=== PATIENT | female | born 1950 | race Caucasian/White ===

== ENCOUNTER → 2016-10-09 | Outpatient (CLI) | payer MEDICARE ==
--- NOTE | 2016-10-10 13:26 | MM ---
Reason for exam: screening (asymptomatic). Last mammogram was performed 1 year ago. History: Patient is postmenopausal and had first child at age 35. Physical Findings: A clinical breast exam by your physician is recommended on an annual basis and results should be correlated with mammographic findings. MG 3D Screening Mammo W/Cad Bilateral CC and MLO view(s) were taken. Prior study comparison: October 07, 2015, bilateral MG screening mammo w CAD. October 05, 2014, bilateral MG screening mammo w CAD. The breast tissue is heterogeneously dense. This may lower the sensitivity of mammography. No significant changes when compared with prior studies. ASSESSMENT: Benign, BI-RAD 2 RECOMMENDATION: Routine screening mammogram of both breasts in 1 year.
== END | disposition home or self-care (01) ==
LOC: RADMAMWWP 06:47
PROVIDERS: ATTEND Internal Medicine
DX: Z12.31 Encounter for screening mammogram for malignant neoplasm of breast (principal)
CPT/HCPCS: 77063; G0202

== ENCOUNTER → 2017-06-25 | Outpatient (CLI) | payer MEDICARE ==
--- NOTE | 2017-06-25 08:16 | CT ---
EXAMINATION TYPE: CT sinus wo con DATE OF EXAM: 06/25/2017 COMPARISON: NONE HISTORY: Chronic sinusitis CT DLP: 540 mGycm CONTRAST: 0 mL of Omnipaque 350 The paranasal sinuses are examined in the axial plane at 2 mm thick sections. Reconstructed images i n the coronal plane were obtained. There is dental amalgam scatter artifact The maxillary sinuses are clear. The ethmoid air cells are clear. The sphenoid sinuses are clear. The frontal sinuses are clear. The septum is evaluated. There is septal deviation to the right. The ostiomeatal units are patent. There are bilateral geno bullosa. Air-fluid level is within the right geno bullosa. IMPRESSIONS: 1. Bilateral geno bullosa with an air-fluid level within the right geno bullosa. 2. Paranasal sinuses are clear.
== END | disposition home or self-care (01) ==
LOC: RADCTMAIN 07:24
PROVIDERS: ATTEND Internal Medicine
DX: J32.9 Chronic sinusitis, unspecified (principal)
CPT/HCPCS: 70486

== ENCOUNTER → 2017-10-19 | Outpatient (CLI) | payer MEDICARE ==
--- NOTE | 2017-10-22 07:56 | MM ---
Reason for exam: screening (asymptomatic). Last mammogram was performed 1 year ago. History: Patient is postmenopausal and had first child at age 35. Physical Findings: A clinical breast exam by your physician is recommended on an annual basis and results should be correlated with mammographic findings. MG Screening Mammo w CAD Bilateral CC and MLO view(s) were taken. XCCL view(s) were taken of the right breast. Prior study comparison: October 09, 2016, bilateral MG 3d screening mammo w/cad. October 07, 2015, bilateral MG screening mammo w CAD. The breast tissue is heterogeneously dense. This may lower the sensitivity of mammography. There is no discrete abnormality. ASSESSMENT: Negative, BI-RAD 1 RECOMMENDATION: Routine screening mammogram of both breasts in 1 year.
== END | disposition home or self-care (01) ==
LOC: RADMAMWWP 09:32
PROVIDERS: ATTEND Internal Medicine
DX: Z12.31 Encounter for screening mammogram for malignant neoplasm of breast (principal)
CPT/HCPCS: 77067

== ENCOUNTER 2018-01-21 10:31 | Emergency (ER) | payer MEDICARE ==
[2018-01-21 11:03] VITALS: RESP 16; TEMP 98
[2018-01-21] MEDS ORDERED: SODIUM CHLORIDE 0.9% 1,000 ML IV ONE (12:16)
[2018-01-21] MEDS ORDERED: ONDANSETRON 4 MG/2 ML VIAL IVP STA (12:16)
--- NOTE | 2018-01-21 12:20 | ED ---
Abdominal Pain HPI - General Chief Complaint: Abdominal Pain Stated Complaint: weakness, lethargy Time Seen by Provider: 01/21/18 11:51 Source: patient Mode of arrival: ambulatory Limitations: no limitations - History of Present Illness Initial Comments: Patient is a 67-year-old female presents with chief complaint lower abdominal pain. The pain started last Sunday. The patient was seen by her primary care physician and prescribed Pyridium. Patient states that initially she felt better however over the last few days she's had feelings of malaise and lower abdominal pain. Patient cannot identify inciting incident. There are no aggravating or alleviating factors. Timing is constant. Patient admits to increase appetite and nausea. She denies back pain or dysuria. - Related Data Home Medications Medication Instructions Recorded Confirmed Aspirin EC [Ecotrin] 81 mg PO DAILY 11/02/15 01/21/18 Atorvastatin [Lipitor] 80 mg PO HS 11/02/15 01/21/18 Cholecalciferol [Vitamin D3] 2,000 unit PO DAILY 11/02/15 01/21/18 Lisinopril [Zestril] 10 mg PO HS 11/02/15 01/21/18 Vits A,C,E/Lutein/Minerals 1 tab PO HS 11/02/15 01/21/18 [Ocuvite with Lutein Tablet] Calcium Citrate 250 mg PO DAILY 01/21/18 01/21/18 Fexofenadine HCl [Teetee Allergy] 180 mg PO DAILY 01/21/18 01/21/18 Fish Oil/Dha/Epa [Fish Oil 1,200 1 cap PO DAILY 01/21/18 01/21/18 mg Fish Oil] Fluticasone Nasal [place] [Flonase 1 spray EA NOSTRIL BID 01/21/18 01/21/18 Nasal [place]] Prolia(Unknown Dose) 1 dose SQ Q180D 01/21/18 01/21/18 Previous Rx's Medication Instructions Recorded Cephalexin [Keflex] 500 mg PO Q6HR 14 Days #48 cap 01/21/18 Ondansetron Odt [Zofran Odt] 4 mg PO Q8HR PRN #12 tab 01/21/18 Allergies Allergy/AdvReac Type Severity Reaction Status Date / Time No Known Allergies Allergy Verified 01/21/18 12:27 Review of Systems ROS Statement: Those systems with pertinent positive or pertinent negative responses have been documented in the HPI. ROS Other: All systems not noted in ROS Statement are negative. Constitutional: Reports: chills Gastrointestinal: Reports: abdominal pain, nausea Past Medical History Past Medical History: Hyperlipidemia, Hypertension, Myocardial Infarction ([place]) Additional Past Medical History / Comment(s): OSTEOPOROSIS. Last Myocardial Infarction Date:: 2004 History of Any Multi-Drug Resistant Organisms: None Reported Past Surgical History: Heart Catheterization With Stent Additional Past Surgical History / Comment(s): RT CATARACT, COLONOSCOPY, HEART CATH WITH 3 STENTS (2004) Past Anesthesia/Blood Transfusion Reactions: No Reported Reaction Date of Last Stent Placement:: 2004 Past Psychological History: No Psychological Hx Reported Smoking Status: Former smoker Past Alcohol Use History: None Reported Past Drug Use History: None Reported - Past Family History Mother Family Medical History: No Reported History General Exam Limitations: no limitations General appearance: alert, in no apparent distress Head exam: Present: atraumatic, normocephalic Eye exam: Present: normal appearance ENT exam: Present: normal exam, mucous membranes moist Neck exam: Present: normal inspection Respiratory exam: Present: normal lung sounds bilaterally. Absent: respiratory distress, wheezes Cardiovascular Exam: Present: regular rate, normal rhythm GI/Abdominal exam: Present: soft, tenderness (Patient has tenderness to palpation in the suprapubic region.). Absent: distended Rectal exam: Present: deferred Extremities exam: Present: normal inspection Back exam: Present: normal inspection. Absent: CVA tenderness (R), CVA tenderness (L) Neurological exam: Present: alert, oriented X3 Psychiatric exam: Present: normal affect, normal mood Skin exam: Present: warm, dry, intact Course Vital Signs 01/21/18 01/21/18 11:00 14:06 Temperature 98 F Pulse Rate 91 80 Respiratory 16 16 Rate Blood Pressure 110/70 131/61 O2 Sat by Pulse 97 99 Oximetry Medical Decision Making - Medical Decision Making Patient presents with a chief complaint of lower abdominal pain. The patient states that she was treated for urinary tract infection however her most updated medications list does not include an antibiotic. Patient was given Pyridium for 2 days. On initial evaluation, vital signs are stable, patient is in no acute distress. Patient will be evaluated with basic labs including chest x-ray, EKG, one troponin given her cardiac history. Urinalysis will be reevaluated. Patient given Zofran and IV fluids. EKG performed at 12:30 PM shows normal sinus rhythm with a rate of 80 beats per minute. EKG is otherwise unremarkable. 2:40 PM Plan evaluation of this patient shows leukocytosis over 90,000, there is left shift. Labs are otherwise unremarkable. Renal function is stable. Urinalysis shows evidence of an infection. There is hematuria present, follow-up computed tomography scan without contrast shows fat stranding around the right kidney, and while thickening of the bladder consistent with urinary tract infection pyelonephritis. Patient was given a dose of Rocephin and Zofran in the emergency department. She'll be discharged with 14 days of Keflex. She was instructed to follow up with primary care in 1-2 days, return to the emergency department if symptoms worsen or change. - Lab Data Result diagrams: 01/21/18 12:23 01/21/18 12:23 Lab Results 01/21/18 01/21/18 01/21/18 Range/Units 12:23 12:23 12:23 WBC 19.2 H (3.8-10.6) k/uL RBC 4.13 (3.80-5.40) m/uL Hgb 13.0 (11.4-16.0) gm/dL Hct 38.3 (34.0-46.0) % MCV 92.7 (80.0-100.0) fL MCH 31.5 (25.0-35.0) pg MCHC 34.0 (31.0-37.0) g/dL RDW 13.1 (11.5-15.5) % Plt Count 236 (150-450) k/uL Neutrophils % 89 % Lymphocytes % 3 % Monocytes % 6 % Eosinophils % 0 % Basophils % 0 % Neutrophils # 17.2 H (1.3-7.7) k/uL Lymphocytes # 0.6 L (1.0-4.8) k/uL Monocytes # 1.2 H (0-1.0) k/uL Eosinophils # 0.0 (0-0.7) k/uL Basophils # 0.0 (0-0.2) k/uL Sodium 136 L (137-145) mmol/L Potassium 4.3 (3.5-5.1) mmol/L Chloride 98 (98-107) mmol/L Carbon Dioxide 27 (22-30) mmol/L Anion Gap 11 mmol/L BUN 20 H (7-17) mg/dL Creatinine 0.95 (0.52-1.04) mg/dL Est GFR (CKD-EPI)AfAm 72 (>60 ml/min/1.73 sqM) Est GFR (CKD-EPI)NonAf 63 (>60 ml/min/1.73 sqM) Glucose 92 (74-99) mg/dL Calcium 9.3 (8.4-10.2) mg/dL Total Bilirubin 0.9 (0.2-1.3) mg/dL AST 23 (14-36) U/L ALT 27 (9-52) U/L Alkaline Phosphatase 74 (38-126) U/L Troponin I (0.000-0.034) ng/mL NT-Pro-B Natriuret Pep 264 pg/mL Total Protein 6.2 L (6.3-8.2) g/dL Albumin 3.6 (3.5-5.0) g/dL Amylase 37 (30-110) U/L Lipase 29 (23-300) U/L Urine Color Urine Appearance (Clear) Urine pH (5.0-8.0) Ur Specific [place] (1.001-1.035) Urine Protein (Negative) Urine Glucose (UA) (Negative) Urine Ketones (Negative) Urine Blood (Negative) Urine Nitrite (Negative) Urine Bilirubin (Negative) Urine Urobilinogen (<2.0) mg/dL Ur Leukocyte Esterase (Negative) Urine RBC (0-5) /hpf Urine WBC (0-5) /hpf Urine WBC Clumps (None) /hpf Ur Squamous Epith Cells (0-4) /hpf Urine Bacteria (None) /hpf Urine Mucus (None) /hpf 01/21/18 01/21/18 Range/Units 12:23 12:23 WBC (3.8-10.6) k/uL RBC (3.80-5.40) m/uL Hgb (11.4-16.0) gm/dL Hct (34.0-46.0) % MCV (80.0-100.0) fL MCH (25.0-35.0) pg MCHC (31.0-37.0) g/dL RDW (11.5-15.5) % Plt Count (150-450) k/uL Neutrophils % % Lymphocytes % % Monocytes % % Eosinophils % % Basophils % % Neutrophils # (1.3-7.7) k/uL Lymphocytes # (1.0-4.8) k/uL Monocytes # (0-1.0) k/uL Eosinophils # (0-0.7) k/uL Basophils # (0-0.2) k/uL Sodium (137-145) mmol/L Potassium (3.5-5.1) mmol/L Chloride (98-107) mmol/L Carbon Dioxide (22-30) mmol/L Anion Gap mmol/L BUN (7-17) mg/dL Creatinine (0.52-1.04) mg/dL Est GFR (CKD-EPI)AfAm (>60 ml/min/1.73 sqM) Est GFR (CKD-EPI)NonAf (>60 ml/min/1.73 sqM) Glucose (74-99) mg/dL Calcium (8.4-10.2) mg/dL Total Bilirubin (0.2-1.3) mg/dL AST (14-36) U/L ALT (9-52) U/L Alkaline Phosphatase (38-126) U/L Troponin I <0.012 (0.000-0.034) ng/mL NT-Pro-B Natriuret Pep pg/mL Total Protein (6.3-8.2) g/dL Albumin (3.5-5.0) g/dL Amylase (30-110) U/L Lipase (23-300) U/L Urine Color Yellow Urine Appearance Turbid H (Clear) Urine pH 5.5 (5.0-8.0) Ur Specific [place] 1.015 (1.001-1.035) Urine Protein 1+ H (Negative) Urine Glucose (UA) Negative (Negative) Urine Ketones Negative (Negative) Urine Blood Moderate H (Negative) Urine Nitrite Negative (Negative) Urine Bilirubin Negative (Negative) Urine Urobilinogen <2.0 (<2.0) mg/dL Ur Leukocyte Esterase Large H (Negative) Urine RBC 34 H (0-5) /hpf Urine WBC >182 H (0-5) /hpf Urine WBC Clumps Many H (None) /hpf Ur Squamous Epith Cells 3 (0-4) /hpf Urine Bacteria Many H (None) /hpf Urine Mucus Occasional H (None) /hpf Disposition Clinical Impression: Pyelonephritis Disposition: HOME SELF-CARE Condition: Good Prescriptions: Cephalexin [Keflex] 500 mg PO Q6HR 14 Days #48 cap Ondansetron Odt [Zofran Odt] 4 mg PO Q8HR PRN #12 tab PRN Reason: Nausea Is patient prescribed a controlled substance at d/c from ED?: No Referrals: Loc Francis MD [Primary Care Provider] - 1-2 days
--- NOTE | 2018-01-21 12:43 | XR ---
EXAMINATION TYPE: XR chest 2V DATE OF EXAM: 01/21/2018 COMPARISON: NONE INDICATION: Pain TECHNIQUE: Frontal and lateral views of the chest are obtained. FINDINGS: The heart size is normal. The pulmonary vasculature is normal. Minimal increased lung markings in the upper outer aspect left chest.. There is hyper inflation comp atible with COPD. IMPRESSION: 1. COPD. 2. No acute pulmonary process. 3. Mild increased lung markings upper outer left chest. Follow-up chest study in 3 months is recommen ded.
[2018-01-21 12:45] LABS: Basophils % (A) 0 %; Eosinophils % (A) 0 %; HCT 38.3 % (34.0-46.0); Lymphocytes # (A) 0.6 k/uL (1.0-4.8); Lymphocytes % (A) 3 %; MCH 31.5 pg (25.0-35.0); MCV 92.7 fL (80.0-100.0); Monocytes # (A) 1.2 k/uL (0-1.0); Monocytes % (A) 6 %; Neutrophils # (A) 17.2 k/uL (1.3-7.7); Neutrophils % (A) 89 %; Platelet Count 236 k/uL (150-450); RBC 4.13 m/uL (3.80-5.40); RDW 13.1 % (11.5-15.5); WBC 19.2 k/uL (3.8-10.6)
[2018-01-21 12:49] LABS: Albumin 3.6 g/dL (3.5-5.0); Calcium 9.3 mg/dL (8.4-10.2); Potassium 4.3 mmol/L (3.5-5.1); Total Bilirubin 0.9 mg/dL (0.2-1.3); Total Protein 6.2 g/dL (6.3-8.2)
[2018-01-21 13:18] LABS: Appearance,Urine Turbid (Clear); Bacteria,Urine Many /hpf; Bilirubin,Urine Negative (Negative); Blood,Urine Moderate (Negative); Color,Urine Yellow; Glucose,Urine (UA) Negative (Negative); Ketones,Urine Negative (Negative); Leukocyte Esterase,Urine Large (Negative); Mucus,Urine Occasional /hpf; Nitrite,Urine Negative (Negative); PH, Urine 5.5 (5.0-8.0); Protein,Urine 1+ (Negative); RBC,Urine 34 /hpf (0-5); Specific Gravity,Urine 1.015 (1.001-1.035); Squamous Epithelial Cell,Urine 3 /hpf (0-4); Urobilinogen,Urine <2.0 mg/dL (<2.0); WBC,Urine >182 /hpf (0-5)
[2018-01-21] MEDS ORDERED: cefTRIAXone IN SWFI 1,000 MG/10 ML SYRINGE IVP STA (13:23)
[2018-01-21 14:07] VITALS: BP 131/61; PULSE 80
--- NOTE | 2018-01-21 14:07 | CT ---
EXAMINATION TYPE: CT renal stones wo con DATE OF EXAM: 01/21/2018 COMPARISON: NONE HISTORY: 67-year-old female Generalized pain with hematuria TECHNIQUE: Contiguous axial scanning of the abdomen and pelvis without IV contrast. Coronal and sagit daphney reconstructions performed. CT DLP: 572 mGycm Automated exposure control for dose reduction was used. FINDINGS: Heart normal size without pericardial effusion. Coronary vessel calcifications are present and are a marker for coronary artery disease. Lung bases clear without pleural effusion. Calcified granuloma anterior liver. Noncontrast appearance of the liver, gallbladder, right adrenal g land, left kidney, and pancreas show no gross abnormality. Scattered calcified granulomas within the spleen. Mild diffuse thickening of the left adrenal gland w ithout discrete nodularity. There is edematous appearing right kidney with mild perinephric fat stranding and asymmetric enlargem ent 11 cm versus 9.7 cm on the left. No hydronephrosis or suspicious calcification is clearly identif ied. Moderate atherosclerotic calcifications within the abdominal aorta and iliac arteries. No dilated small bowel, free fluid, or free air. Mild to moderate colonic stool. Sigmoid diverticulosis. No pericolonic inflammatory change. Mild circumferential bladder wall thickening. Uterus is visualized. Ovaries not clearly identified du e to clustered unopacified bowel loops. Bulging convexity of the levator ani musculature suggests pelvic floor relaxation. No abnormal fluid collections pelvis or pelvic lymphadenopathy seen. Bones: Mild degenerative changes at the hips. Degenerative changes at the SI joints. Facet arthropath y and mild degenerative disc disease. IMPRESSION: 1. EDEMATOUS RIGHT KIDNEY WITH SURROUNDING PERINEPHRIC INFLAMMATION BUT WITHOUT HYDRONEPHROSIS OR LADONNA PICIOUS CALCULUS SEEN. CORRELATE FOR POSSIBLE PYELONEPHRITIS. 2. MILD CIRCUMFERENTIAL BLADDER WALL THICKENING CAN BE SEEN WITH CYSTITIS 3. SIGMOID DIVERTICULOSIS WITHOUT ACUTE DIVERTICULITIS AND PELVIC FLOOR RELAXATION.
== END 2018-01-21 15:03 | disposition home or self-care (01) ==
LOC: EC 10:31
DX: N12 Tubulo-interstitial nephritis, not specified as acute or chronic (principal); E78.5 Hyperlipidemia, unspecified; I10 Essential (primary) hypertension; I25.2 Old myocardial infarction; Z87.891 Personal history of nicotine dependence; Z79.82 Long term (current) use of aspirin; Z79.899 Other long term (current) drug therapy; Z79.51 Long term (current) use of inhaled steroids; Z95.5 Presence of coronary angioplasty implant and graft
CPT/HCPCS: 36415; 93005; 83880; 80053; 82150; 83690; 84484; 85025; 81001; 71046; 74150; 99284; 96374; 96375; 96361 ×2; J2405; J0696

== ENCOUNTER → 2019-12-30 | Outpatient (CLI) | payer MEDICARE ==
--- NOTE | 2020-01-01 08:00 | MM ---
Reason for exam: screening (asymptomatic). Last mammogram was performed 1 year and 2 months ago. History: Patient is postmenopausal and had first child at age 35. Physical Findings: A clinical breast exam by your physician is recommended on an annual basis and results should be correlated with mammographic findings. MG Screening Mammo w CAD Bilateral CC and MLO view(s) were taken. Prior study comparison: October 21, 2018, bilateral MG screening mammo w CAD. October 19, 2017, bilateral MG screening mammo w CAD. The breast tissue is heterogeneously dense. This may lower the sensitivity of mammography. There is no discrete abnormality. ASSESSMENT: Negative, BI-RAD 1 RECOMMENDATION: Routine screening mammogram of both breasts in 1 year.
== END | disposition home or self-care (01) ==
LOC: RADMAMWWP 10:17
PROVIDERS: ATTEND Internal Medicine
DX: Z12.31 Encounter for screening mammogram for malignant neoplasm of breast (principal)
CPT/HCPCS: 77067

== ENCOUNTER 2021-09-11 13:47 | Emergency (ER) | payer MEDICARE ==
[2021-09-11 14:03] VITALS: TEMP 98
[2021-09-11 14:28] LABS: Basophils % (A) 0 %; Eosinophils # (A) 0.1 k/uL (0-0.7); Eosinophils % (A) 1 %; HCT 42.7 % (34.0-46.0); HGB 14.6 gm/dL (11.4-16.0); Lymphocytes % (A) 13 %; MCH 32.2 pg (25.0-35.0); MCHC 34.3 g/dL (31.0-37.0); Mean Platelet Volume 7.5; Monocytes # (A) 0.6 k/uL (0-1.0); Monocytes % (A) 7 %; Neutrophils % (A) 77 %; Platelet Count 277 k/uL (150-450); RBC 4.54 m/uL (3.80-5.40); RDW 13.1 % (11.5-15.5); WBC 7.7 k/uL (3.8-10.6)
[2021-09-11 14:38] LABS: Prothrombin Time 10.8 sec (9.0-12.0)
[2021-09-11 14:51] LABS: ALT 22 U/L (4-34); AST 29 U/L (14-36); African American GFR (CKD) >90 (>60 ml/min/1.73 sqM); Albumin 4.7 g/dL (3.5-5.0); Alkaline Phosphatase 97 U/L (38-126); Anion Gap 9 mmol/L; Blood Urea Nitrogen 18 mg/dL (7-17); Calcium 10.6 mg/dL (8.4-10.2); Carbon Dioxide 26 mmol/L (22-30); Chloride 102 mmol/L (98-107); Glucose 98 mg/dL (74-99); Non-African American GFR(CKD) 89 (>60 ml/min/1.73 sqM); Potassium 4.1 mmol/L (3.5-5.1); Sodium 137 mmol/L (137-145); Total Bilirubin 0.9 mg/dL (0.2-1.3); Total Protein 7.5 g/dL (6.3-8.2)
[2021-09-11] MEDS ORDERED: KETOROLAC 15 MG/ML 1 ML VIAL IVP STA (15:57)
[2021-09-11] MEDS ORDERED: SODIUM CHLORIDE 0.9% 1,000 ML IV STA (15:57)
[2021-09-11 16:41] LABS: Appearance,Urine Cloudy (Clear); Bacteria,Urine Occasional /hpf; Bilirubin,Urine Negative (Negative); Blood,Urine Trace (Negative); Color,Urine Yellow; Glucose,Urine (UA) Negative (Negative); Ketones,Urine Negative (Negative); Leukocyte Esterase,Urine Moderate (Negative); Mucus,Urine Rare /hpf; Nitrite,Urine Positive (Negative); PH, Urine 5.5 (5.0-8.0); Protein,Urine Negative (Negative); RBC,Urine 2 /hpf (0-5); Specific Gravity,Urine 1.009 (1.001-1.035); Squamous Epithelial Cell,Urine <1 /hpf (0-4); Urobilinogen,Urine <2.0 mg/dL (<2.0); WBC,Urine 27 /hpf (0-5)
--- NOTE | 2021-09-11 16:48 | XR ---
EXAMINATION TYPE: XR shoulder complete RT DATE OF EXAM: 09/11/2021 COMPARISON: NONE HISTORY: Fall. Pain. TECHNIQUE: 3 views FINDINGS: There is no evidence of fracture nor dislocation. Glenohumeral joint is intact. There are n o pathologic calcifications. IMPRESSION: Negative right shoulder exam. No fracture.
--- NOTE | 2021-09-11 16:51 | XR ---
EXAMINATION TYPE: XR knee complete bilateral DATE OF EXAM: 09/11/2021 COMPARISON: NONE HISTORY: Fall. Pain. TECHNIQUE: 6 views FINDINGS: There is no evidence of fracture nor dislocation. Joint spaces are normal. There are no pat hologic calcifications. There is no sign of joint effusion. IMPRESSION: Negative bilateral knee exam.
--- NOTE | 2021-09-11 16:55 | XR ---
EXAMINATION TYPE: XR ribs LT w pa chest xray DATE OF EXAM: 09/11/2021 COMPARISON: 01/21/2018 HISTORY: Weakness TECHNIQUE: 2 views FINDINGS: There is no heart failure nor confluent pneumonic infiltrate. Costophrenic angles are clear . There are no hilar masses. Heart size is normal. There are old fractures left ninth and 10th ribs. There is evidence of acute fracture without displac ement of the anterior left ninth rib. There are multiple old lateral rib fractures at left sixth and seventh and eighth ribs. IMPRESSION: There is evidence for a single acute fracture anterior left ninth rib. Multiple old rib f ractures. No active cardiopulmonary disease.
--- NOTE | 2021-09-11 16:59 | ED ---
General Adult HPI - General Chief complaint: Dizziness Stated complaint: Fall/Dizziness Time Seen by Provider: 09/11/21 15:27 Source: patient, RN notes reviewed, old records reviewed Mode of arrival: wheelchair Limitations: no limitations - History of Present Illness Initial comments: She is a 71-year-old female who presents emergency Department complaining of dizziness and a fall yesterday. She describes the dizziness as a lightheaded feeling feeling. She states that yesterday she bent down to pick something up, felt lightheaded, and fell onto her left side. She states that she has some pain over her left ribs. She is chronic pain in the right shoulder and right knee and is uncertain if it is any worse than normal. 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 Is also complaining of left knee tenderness. Is able to ambulate. Seen at urgent care today and sent to the emergency department for further evaluation. Denies any other chest pain, shortness of breath, abdominal pain, nausea, vomiting. States she mostly feels improved at this time. Presents for further evaluation. Would like to go home if she can. - Related Data Home Medications Medication Instructions Recorded Confirmed Aspirin EC [Ecotrin] 81 mg PO HS 11/02/15 09/11/21 Atorvastatin [Lipitor] 80 mg PO HS 11/02/15 09/11/21 Lisinopril [Zestril] 10 mg PO HS 11/02/15 09/11/21 Fish Oil/Dha/Epa [Fish Oil 1,200 1 cap PO HS 01/21/18 09/11/21 mg Fish Oil] Calcium Carbonate [Calcium] 1,200 mg PO HS 09/11/21 09/11/21 Cholecalciferol [Vitamin D3 (25 50 mcg PO DAILY 09/11/21 09/11/21 Mcg = 1000 Iu)] Meloxicam 15 mg PO DAILY 09/11/21 09/11/21 Risedronate Sodium 5 mg PO HS 09/11/21 09/11/21 Previous Rx's Medication Instructions Recorded Lidocaine 5% Patch [Lidoderm 5% 1 patch TOPICAL DAILY PRN 10 Days 09/11/21 Patch] #10 patch Sulfamethox-Tmp 800-160Mg [Bactrim 1 tab PO Q12HR 7 Days #14 tab 09/11/21 DS 800-160 mg] Allergies Allergy/AdvReac Type Severity Reaction Status Date / Time No Known Allergies Allergy Verified 09/11/21 16:57 Review of Systems ROS Statement: Those systems with pertinent positive or pertinent negative responses have been documented in the HPI. ROS Other: All systems not noted in ROS Statement are negative. Past Medical History Past Medical History: Hyperlipidemia, Hypertension, Myocardial Infarction ([place]) Additional Past Medical History / Comment(s): OSTEOPOROSIS. Last Myocardial Infarction Date:: 2004 History of Any Multi-Drug Resistant Organisms: None Reported Past Surgical History: Heart Catheterization With Stent Additional Past Surgical History / Comment(s): RT CATARACT, COLONOSCOPY, HEART CATH WITH 3 STENTS (2004) Past Anesthesia/Blood Transfusion Reactions: No Reported Reaction Date of Last Stent Placement:: 2004 Past Psychological History: No Psychological Hx Reported Smoking Status: Never smoker Past Alcohol Use History: None Reported Past Drug Use History: None Reported - Past Family History Mother Family Medical History: No Reported History General Exam - General Exam Comments Initial Comments: General: Appears in no acute distress. HEAD: Normal with no signs of head trauma. EYES: PERRLA, EOMI, conjunctiva normal, no discharge. ENT: Hearing grossly intact, normal oropharynx. RESPIRATORY: Clear breath sounds bilaterally. No wheezes, rales, or rhonchi. C/V: Regular rate and rhythm. S1 and S2 auscultated, no edema, peripheral pulses 2+ and intact throughout ABD: Abd is soft, nontender, nondistended EXT: Normal range of motion of all for x-rays. Patient does have some nonspecific tender to palpation over the right shoulder, right anterior knee, left anterior knee. Chest is pinpoint tenderness to palpation over approximately the ninth rib anteriorly. SKIN: No rashes or lesions observed on exposed skin. NEURO: Alert and oriented 4. No focal sensory strength deficits. NIH is 0. GCS is 15. Limitations: no limitations Course Vital Signs 09/11/21 09/11/21 13:58 17:52 Temperature 98.0 F Pulse Rate 84 79 Respiratory 20 18 Rate Blood Pressure 163/81 118/79 O2 Sat by Pulse 96 100 Oximetry Medical Decision Making - Medical Decision Making Based on the patient's presentation and physical exam, I'm concerned for possible cardiopulmonary process her UTI for the patient considering her ligh theadedness. This occurred yesterday and she is feeling mostly better. She could be dehydrated. Also appears that she may have a rib fracture. We will obtain chest x-ray, knee x-rays, right shoulder x-ray in addition to cardiopulmonary workup. Urinalysis also be obtained. She'll be administered IV Toradol as well as 1 L fluid bolus. She was in agreement this plan. She was evaluated after she was placed in a room. Patient's EKG showed no signs of acute ischemia. Knee x-rays and shoulder x-ray revealed no acute fractures or subluxations. Rib with chest x-ray revealed a single acute fracture of the anterior left ninth rib with no displacement. Laboratory studies are remarkable for a negative troponin. Urinalysis is positive for UTI. On reevaluation, patient is feeling improved. She can ambulate without difficulty. Lightheadedness is gone. I updated her on the results of her workup. She expresses understanding that she has a left rib fracture as well as a UTI. She will be administered a dose of IV Rocephin for about expert we will send Bactrim outpatient. She was in agreement with this plan. I believe it is safe for her to be discharged home at this time. She was in agreement this plan. She'll be given a consent an incentive spirometer. I will provide the patient with a prescription for Bactrim DS twice a day for 7 days, lidocaine patch. I instructed the patient to follow up with their PCP in the next 3 days. I explained that the patient should return to the emergency department if they experience any worsening symptoms. Strict return precautions were discussed with the patient. The patient expressed understanding of these instructions. I answered all questions that the patient had. The patient was discharged home in fair condition with their prescriptions and follow up information. - Lab Data Result diagrams: 09/11/21 14:15 09/11/21 14:15 Lab Results 09/11/21 09/11/21 09/11/21 Range/Units 14:15 14:15 14:15 WBC 7.7 (3.8-10.6) k/uL RBC 4.54 (3.80-5.40) m/uL Hgb 14.6 (11.4-16.0) gm/dL Hct 42.7 (34.0-46.0) % MCV 94.0 (80.0-100.0) fL MCH 32.2 (25.0-35.0) pg MCHC 34.3 (31.0-37.0) g/dL RDW 13.1 (11.5-15.5) % Plt Count 277 (150-450) k/uL MPV 7.5 Neutrophils % 77 % Lymphocytes % 13 % Monocytes % 7 % Eosinophils % 1 % Basophils % 0 % Neutrophils # 6.0 (1.3-7.7) k/uL Lymphocytes # 1.0 (1.0-4.8) k/uL Monocytes # 0.6 (0-1.0) k/uL Eosinophils # 0.1 (0-0.7) k/uL Basophils # 0.0 (0-0.2) k/uL PT 10.8 (9.0-12.0) sec INR 1.0 (<1.2) Sodium 137 (137-145) mmol/L Potassium 4.1 (3.5-5.1) mmol/L Chloride 102 (98-107) mmol/L Carbon Dioxide 26 (22-30) mmol/L Anion Gap 9 mmol/L BUN 18 H (7-17) mg/dL Creatinine 0.67 (0.52-1.04) mg/dL Est GFR (CKD-EPI)AfAm >90 (>60 ml/min/1.73 sqM) Est GFR (CKD-EPI)NonAf 89 (>60 ml/min/1.73 sqM) Glucose 98 (74-99) mg/dL Calcium 10.6 H (8.4-10.2) mg/dL Total Bilirubin 0.9 (0.2-1.3) mg/dL AST 29 (14-36) U/L ALT 22 (4-34) U/L Alkaline Phosphatase 97 (38-126) U/L Troponin I (0.000-0.034) ng/mL Total Protein 7.5 (6.3-8.2) g/dL Albumin 4.7 (3.5-5.0) g/dL Urine Color Urine Appearance (Clear) Urine pH (5.0-8.0) Ur Specific [place] (1.001-1.035) Urine Protein (Negative) Urine Glucose (UA) (Negative) Urine Ketones (Negative) Urine Blood (Negative) Urine Nitrite (Negative) Urine Bilirubin (Negative) Urine Urobilinogen (<2.0) mg/dL Ur Leukocyte Esterase (Negative) Urine RBC (0-5) /hpf Urine WBC (0-5) /hpf Ur Squamous Epith Cells (0-4) /hpf Urine Bacteria (None) /hpf Urine Mucus (None) /hpf 09/11/21 09/11/21 Range/Units 14:15 15:30 WBC (3.8-10.6) k/uL RBC (3.80-5.40) m/uL Hgb (11.4-16.0) gm/dL Hct (34.0-46.0) % MCV (80.0-100.0) fL MCH (25.0-35.0) pg MCHC (31.0-37.0) g/dL RDW (11.5-15.5) % Plt Count (150-450) k/uL MPV Neutrophils % % Lymphocytes % % Monocytes % % Eosinophils % % Basophils % % Neutrophils # (1.3-7.7) k/uL Lymphocytes # (1.0-4.8) k/uL Monocytes # (0-1.0) k/uL Eosinophils # (0-0.7) k/uL Basophils # (0-0.2) k/uL PT (9.0-12.0) sec INR (<1.2) Sodium (137-145) mmol/L Potassium (3.5-5.1) mmol/L Chloride (98-107) mmol/L Carbon Dioxide (22-30) mmol/L Anion Gap mmol/L BUN (7-17) mg/dL Creatinine (0.52-1.04) mg/dL Est GFR (CKD-EPI)AfAm (>60 ml/min/1.73 sqM) Est GFR (CKD-EPI)NonAf (>60 ml/min/1.73 sqM) Glucose (74-99) mg/dL Calcium (8.4-10.2) mg/dL Total Bilirubin (0.2-1.3) mg/dL AST (14-36) U/L ALT (4-34) U/L Alkaline Phosphatase (38-126) U/L Troponin I <0.012 (0.000-0.034) ng/mL Total Protein (6.3-8.2) g/dL Albumin (3.5-5.0) g/dL Urine Color Yellow Urine Appearance Cloudy H (Clear) Urine pH 5.5 (5.0-8.0) Ur Specific [place] 1.009 (1.001-1.035) Urine Protein Negative (Negative) Urine Glucose (UA) Negative (Negative) Urine Ketones Negative (Negative) Urine Blood Trace H (Negative) Urine Nitrite Positive H (Negative) Urine Bilirubin Negative (Negative) Urine Urobilinogen <2.0 (<2.0) mg/dL Ur Leukocyte Esterase Moderate H (Negative) Urine RBC 2 (0-5) /hpf Urine WBC 27 H (0-5) /hpf Ur Squamous Epith Cells <1 (0-4) /hpf Urine Bacteria Occasional H (None) /hpf Urine Mucus Rare H (None) /hpf - EKG Data -: EKG Interpreted by Me EKG Comments: 12-lead Electrocardiogram Interpretation Note EKG was reviewed and interpreted by myself. 12-lead ECG performed at 1408 is interpreted by me as revealing normal sinus rhythm at a rate of 68 beats per min [place]. [place] is normal. [place] interval is 165 ms, QRS duration is 86 ms, QTc is 384 ms.. There were no ST or T wave abnormalities to suggest myocardial ischemia or injury. R wave progression across the precordium was satisfactory. By my interpretation this EKG is non-diagnostic for acute ischemia. Disposition Clinical Impression: UTI (urinary tract infection), Left rib fracture Disposition: HOME SELF-CARE Condition: Fair Instructions (If sedation given, give patient instructions): Urinary Tract Infection in Women (ED), Rib Fracture (ED) Prescriptions: Sulfamethox-Tmp 800-160Mg [Bactrim DS 800-160 mg] 1 tab PO Q12HR 7 Days #14 tab Lidocaine 5% Patch [Lidoderm 5% Patch] 1 patch TOPICAL DAILY PRN 10 Days #10 patch PRN Reason: Pain Is patient prescribed a controlled substance at d/c from ED?: No Referrals: Lizeth Galdamez MD [Primary Care Provider] - 1-2 days
[2021-09-11] MEDS ORDERED: cefTRIAXone IN SWFI 1,000 MG/10 ML SYRINGE IVP STA (17:16)
[2021-09-11 17:53] VITALS: BP 118/79; PULSE 79; RESP 18
== END 2021-09-11 17:53 | disposition home or self-care (01) ==
LOC: EC 13:47
DX: S22.32XA Fracture of one rib, left side, initial encounter for closed fracture (principal); N39.0 Urinary tract infection, site not specified; I10 Essential (primary) hypertension; W19.XXXA Unspecified fall, initial encounter
CPT/HCPCS: 36415; 93005; 80053; 84484; 85025; 85610; 81001; 87086; 71101; 73562; 73030; 99284; 96374; 96375; 96361; J0696; J1885

== ENCOUNTER 2021-12-21 11:52 | Emergency (ER) | payer MEDICARE ==
[2021-12-21 12:07] VITALS: BP 157/78; PULSE 98; RESP 18; TEMP 99.2
[2021-12-21 12:55] LABS: Appearance,Urine Cloudy (Clear); Bacteria,Urine Many /hpf; Bilirubin,Urine Negative (Negative); Blood,Urine Moderate (Negative); Color,Urine Yellow; Glucose,Urine (UA) Negative (Negative); Ketones,Urine Negative (Negative); Leukocyte Esterase,Urine Large (Negative); Mucus,Urine Many /hpf; Nitrite,Urine Negative (Negative); PH, Urine 5.5 (5.0-8.0); Protein,Urine 1+ (Negative); RBC,Urine 15 /hpf (0-5); Specific Gravity,Urine 1.016 (1.001-1.035); Squamous Epithelial Cell,Urine 1 /hpf (0-4); Urobilinogen,Urine <2.0 mg/dL (<2.0); WBC,Urine >182 /hpf (0-5)
--- NOTE | 2021-12-21 13:30 | XR ---
EXAMINATION TYPE: XR KUB DATE OF EXAM: 12/21/2021 COMPARISON: None INDICATION: Unable to urinate TECHNIQUE: Single view abdomen FINDINGS: Nonspecific small bowel gas is within the pelvis. No mass effect is evident. Psoas margins are normal. No organomegaly is present. No suspicious calcifications are identified. IMPRESSION: 1. Nonspecific bowel gas pattern
[2021-12-21] MEDS ORDERED: CEPHALEXIN 500 MG CAP PO STA (13:33)
--- NOTE | 2021-12-21 13:44 | ED ---
General Adult HPI - General Chief complaint: Abdominal Pain Stated complaint: unable to urinate, abd pain Time Seen by Provider: 12/21/21 13:25 Source: patient, RN notes reviewed, old records reviewed Mode of arrival: ambulatory Limitations: no limitations - History of Present Illness Initial comments: 71-year-old female presenting with difficulty urinating, lower abdominal pain. Patient has had some mild nausea and no vomiting. No upper abdominal pain or chest pain. No measured fever. She was seen by primary care yesterday with these complaints. No diagnosis was made at the time according to the patient. She has not had dysuria. She has had the urgency to go. Patient had a bowel movement just prior to my evaluation. - Related Data Home Medications Medication Instructions Recorded Confirmed Aspirin EC [Ecotrin] 81 mg PO HS 11/02/15 09/11/21 Atorvastatin [Lipitor] 80 mg PO HS 11/02/15 09/11/21 Lisinopril [Zestril] 10 mg PO HS 11/02/15 09/11/21 Fish Oil/Dha/Epa [Fish Oil 1,200 1 cap PO HS 01/21/18 09/11/21 mg Fish Oil] Calcium Carbonate [Calcium] 1,200 mg PO HS 09/11/21 09/11/21 Cholecalciferol [Vitamin D3 (25 50 mcg PO DAILY 09/11/21 09/11/21 Mcg = 1000 Iu)] Meloxicam 15 mg PO DAILY 09/11/21 09/11/21 Risedronate Sodium 5 mg PO HS 09/11/21 09/11/21 Previous Rx's Medication Instructions Recorded Lidocaine 5% Patch [Lidoderm 5% 1 patch TOPICAL DAILY PRN 10 Days 09/11/21 Patch] #10 patch Sulfamethox-Tmp 800-160Mg [Bactrim 1 tab PO Q12HR 7 Days #14 tab 09/11/21 DS 800-160 mg] Cephalexin [Keflex] 500 mg PO Q8HR 7 Days #21 cap 12/21/21 Allergies Allergy/AdvReac Type Severity Reaction Status Date / Time No Known Allergies Allergy Verified 12/21/21 12:07 Review of Systems ROS Statement: Those systems with pertinent positive or pertinent negative responses have been documented in the HPI. ROS Other: All systems not noted in ROS Statement are negative. Past Medical History Past Medical History: Hyperlipidemia, Hypertension, Myocardial Infarction ([place]) Additional Past Medical History / Comment(s): OSTEOPOROSIS. Last Myocardial Infarction Date:: 2004 History of Any Multi-Drug Resistant Organisms: None Reported Past Surgical History: Heart Catheterization With Stent Additional Past Surgical History / Comment(s): RT CATARACT, COLONOSCOPY, HEART CATH WITH 3 STENTS (2004) Past Anesthesia/Blood Transfusion Reactions: No Reported Reaction Date of Last Stent Placement:: 2004 Past Psychological History: No Psychological Hx Reported Smoking Status: Never smoker Past Alcohol Use History: None Reported Past Drug Use History: None Reported - Past Family History Mother Family Medical History: No Reported History General Exam Limitations: no limitations General appearance: alert, in no apparent distress Head exam: Present: atraumatic, normocephalic Eye exam: Present: normal appearance, PERRL ENT exam: Present: normal exam Neck exam: Present: normal inspection. Absent: tenderness, meningismus Respiratory exam: Present: normal lung sounds bilaterally. Absent: respiratory distress, wheezes Cardiovascular Exam: Present: regular rate, normal rhythm GI/Abdominal exam: Present: soft, tenderness (Very minor suprapubic tenderness). Absent: distended, guarding, rebound Extremities exam: Present: normal inspection, normal capillary refill. Absent: pedal edema Neurological exam: Present: alert, oriented X3, CN II-XII intact. Absent: motor sensory deficit Psychiatric exam: Present: normal affect, normal mood Skin exam: Present: warm, dry, intact. Absent: cyanosis, diaphoretic Course Vital Signs 12/21/21 12:03 Temperature 99.2 F Pulse Rate 98 Respiratory 18 Rate Blood Pressure 157/78 O2 Sat by Pulse 97 Oximetry Medical Decision Making - Medical Decision Making 71-year-old female with suprapubic pain. Patient is well-appearing with stable vitals. She is afebrile. She is not vomiting. Abdominal examination reveals very mild tenderness. She has a urinalysis was suggestive of UTI with greater than 182 white cells and many bacteria. Urine culture pending. X-ray negative for obstruction or intraperitoneal free air. At this time and feel the patient is appropriate for oral antibiotics with strict return parameters. She's given her first dose antibiotics in the emergency department and [facility]. She should follow-up with her primary care physician. - Lab Data Lab Results 12/21/21 Range/Units 12:19 Urine Color Yellow Urine Appearance Cloudy H (Clear) Urine pH 5.5 (5.0-8.0) Ur Specific [place] 1.016 (1.001-1.035) Urine Protein 1+ H (Negative) Urine Glucose (UA) Negative (Negative) Urine Ketones Negative (Negative) Urine Blood Moderate H (Negative) Urine Nitrite Negative (Negative) Urine Bilirubin Negative (Negative) Urine Urobilinogen <2.0 (<2.0) mg/dL Ur Leukocyte Esterase Large H (Negative) Urine RBC 15 H (0-5) /hpf Urine WBC >182 H (0-5) /hpf Urine WBC Clumps Many H (None) /hpf Ur Squamous Epith Cells 1 (0-4) /hpf Urine Bacteria Many H (None) /hpf Urine Mucus Many H (None) /hpf Disposition Clinical Impression: Abdominal pain, UTI (urinary tract infection) Disposition: HOME SELF-CARE Condition: Fair Instructions (If sedation given, give patient instructions): Abdominal Pain (ED), Urinary Tract Infection in Women (ED) Prescriptions: Cephalexin [Keflex] 500 mg PO Q8HR 7 Days #21 cap Is patient prescribed a controlled substance at d/c from ED?: No Referrals: Lizeth Galdamez MD [Primary Care Provider] - 1-2 days Time of Disposition: 13:42
== END 2021-12-21 13:55 | disposition home or self-care (01) ==
LOC: EC 11:52
DX: R10.30 Lower abdominal pain, unspecified (principal); N39.0 Urinary tract infection, site not specified; E78.5 Hyperlipidemia, unspecified; I10 Essential (primary) hypertension; I25.2 Old myocardial infarction
CPT/HCPCS: 74018; 81001; 87086; 99284

== ENCOUNTER → 2022-02-21 | Outpatient (CLI) | payer MEDICARE ==
--- NOTE | 2022-02-21 09:58 | US ---
EXAMINATION TYPE: US abdomen complete DATE OF EXAM: 02/21/2022 COMPARISON: NONE CLINICAL HISTORY: R10.9 ABD PAIN. abdominal pain EXAM MEASUREMENTS: Liver Length: 13.3 cm Gallbladder Wall: 0.2 cm CBD: 0.2 cm Spleen: 8.4 cm Right Kidney: 9.0 x 3.4 x 4.5 cm Left Kidney: 8.6 x 4.3 x 4.0 cm Pancreas: Obscured by bowel gas Liver: wnl Gallbladder: possible small stone = 0.3cm Evidence for sonographic Jacques's sign: no CBD: wnl Spleen: granulomas Right Kidney: no evidence of hydronephrosis Left Kidney: no evidence of hydronephrosis Upper IVC: wnl Abd Aorta: calcifications noted IMPRESSION: 1. Findings suggest a small gallstone. No wall thickening or biliary obstruction. 2. Splenic granuloma.
== END | disposition home or self-care (01) ==
LOC: RADUSWWP 09:09
PROVIDERS: ATTEND Family Medicine
DX: R10.9 Unspecified abdominal pain (principal); L92.8 Other granulomatous disorders of the skin and subcutaneous tissue
CPT/HCPCS: 76700

== ENCOUNTER 2022-03-01 08:08 | Emergency (ER) | payer MEDICARE ==
[2022-03-01] MEDS ORDERED: ONDANSETRON 4 MG/2 ML VIAL IVP STA (08:29)
[2022-03-01] MEDS ORDERED: PANTOPRAZOLE 40 MG/10 ML VIAL IVP STA (08:29)
[2022-03-01] MEDS ORDERED: MORPHINE SULFATE 4 MG/ML SYRINGE IV STA (08:29)
[2022-03-01] MEDS ORDERED: SODIUM CHLORIDE 0.9% 1,000 ML IV STA (08:29)
[2022-03-01] MEDS ORDERED: hydrALAZINE HCL 20 MG/ML 1 ML VIAL IVP STA (08:30)
[2022-03-01 08:50] VITALS: RESP 18
--- NOTE | 2022-03-01 08:52 | ED ---
General Adult HPI - General Chief complaint: Abdominal Pain Stated complaint: ABD Pain Time Seen by Provider: 03/01/22 08:14 Source: patient, RN notes reviewed, old records reviewed Mode of arrival: ambulatory Limitations: no limitations - History of Present Illness Initial comments: Patient is a 71-year-old female with past medical history remarkable for hypertension, [place], hyperlipidemia presents emergency Department complaining of abdominal pain for multiple weeks. Has been ongoing for 1-2 weeks. Discussed the pain is in her bilateral lower quadrants. It is achy, crampy. No upper abdominal pain. Denies nausea, vomiting. Denies constipation but states that stools have been softer than normal. Denies urinary complaints. States the pain comes and goes without any known palliative or provocative factors. Denies any fevers, chills. Denies any sick contacts. Denies chest pain, shortness of breath. States her stool colors are brown. Denies any hematochezia, melena. Has no other acute complaints at this time. Presents over concern for ongoing lower abdominal pain. Denies any history of abdominal surgery.Denies any hematuria, dysuria. - Related Data Home Medications Medication Instructions Recorded Confirmed Aspirin EC [Ecotrin] 81 mg PO HS 11/02/15 09/11/21 Atorvastatin [Lipitor] 80 mg PO HS 11/02/15 09/11/21 lisinopriL [Zestril] 10 mg PO HS 11/02/15 09/11/21 Fish Oil/Dha/Epa [Fish Oil 1,200 1 cap PO HS 01/21/18 09/11/21 mg Fish Oil] Calcium Carbonate [Calcium] 1,200 mg PO HS 09/11/21 09/11/21 Cholecalciferol [Vitamin D3 (25 50 mcg PO DAILY 09/11/21 09/11/21 Mcg = 1000 Iu)] Meloxicam 15 mg PO DAILY 09/11/21 09/11/21 Risedronate Sodium [Actonel] 5 mg PO HS 09/11/21 09/11/21 Previous Rx's Medication Instructions Recorded Lidocaine 5% Patch [Lidoderm 5% 1 patch TOPICAL DAILY PRN 10 Days 09/11/21 Patch] #10 patch Sulfamethox-Tmp 800-160Mg [Bactrim 1 tab PO Q12HR 7 Days #14 tab 09/11/21 DS 800-160 mg] Cephalexin [Keflex] 500 mg PO Q8HR 7 Days #21 cap 12/21/21 Dicyclomine [Bentyl] 20 mg PO QID PRN 7 Days #28 tablet 03/01/22 Ondansetron Odt [Zofran Odt] 4 mg PO Q8HR PRN 3 Days #9 tab 03/01/22 Allergies Allergy/AdvReac Type Severity Reaction Status Date / Time No Known Allergies Allergy Verified 03/01/22 08:13 Review of Systems ROS Statement: Those systems with pertinent positive or pertinent negative responses have been documented in the HPI. Review of Systems: CONST: Denies fever EYES: Denies blurry vision ENT: Denies nasal congestion C/V: Denies Chest pain RESP: Denies shortness of breath GI: Endorses abdominal pain : Denies dysuria SKIN: Denies rash. MSK: Denies joint pain. NEURO: Denies headache ROS Other: All systems not noted in ROS Statement are negative. Past Medical History Past Medical History: Hyperlipidemia, Hypertension, Myocardial Infarction ([place]) Additional Past Medical History / Comment(s): OSTEOPOROSIS. Last Myocardial Infarction Date:: 2004 History of Any Multi-Drug Resistant Organisms: None Reported Past Surgical History: Heart Catheterization With Stent Additional Past Surgical History / Comment(s): RT CATARACT, COLONOSCOPY, HEART CATH WITH 3 STENTS (2004) Past Anesthesia/Blood Transfusion Reactions: No Reported Reaction Date of Last Stent Placement:: 2004 Past Psychological History: No Psychological Hx Reported Smoking Status: Never smoker Past Alcohol Use History: None Reported Past Drug Use History: None Reported - Past Family History Mother Family Medical History: No Reported History General Exam - General Exam Comments Initial Comments: General: Appears in no acute distress. HEAD: Normal with no signs of head trauma. EYES: PERRLA, EOMI, conjunctiva normal, no discharge. ENT: Hearing grossly intact, normal oropharynx. RESPIRATORY: Clear breath sounds bilaterally. No wheezes, rales, or rhonchi. C/V: Regular rate and rhythm. S1 and S2 auscultated, no edema, peripheral pulses 2+ and intact throughout ABD: Abdomen is soft, nondistended. Mild Tender to palpation bilateral left lower and right lower quadrants. Some mild suprapubic tenderness as well. No upper abd pain at this time. no epigastric or RUQ pain. No guarding. No rebound tenderness. No peritoneal signs. EXT: Normal range of motion, no obvious deformity SKIN: No rashes or lesions observed on exposed skin. NEURO: Alert and oriented 4. No focal deficits. Limitations: no limitations Course Vital Signs 03/01/22 03/01/22 03/01/22 08:09 08:49 09:12 Temperature 98.8 F Pulse Rate 84 70 74 Respiratory 16 18 18 Rate Blood Pressure 211/95 176/101 175/87 O2 Sat by Pulse 98 98 97 Oximetry 03/01/22 11:28 Temperature 98.2 F Pulse Rate 93 Respiratory 18 Rate Blood Pressure 143/68 O2 Sat by Pulse 95 Oximetry Medical Decision Making - Medical Decision Making Based on the patient's presentation and physical exam, I'm concerned for acute intra-abdominal process for current symptoms. Did receive an ultrasound last week of the abdomen which is remarkable only for an uncomplicated single gallstone. This would not explain her lower abdominal complaints that she has been having. Did recommend we obtain a CT abdomen and pelvis in addition to abdominal laboratory studies. She was in agreement this plan. We'll check her urine as well. She'll be given a GI cocktail as well as analgesic medications. Patient was in agreement this plan.Patient is hypertensive and did not take her morning antihypertensive medications. Will be given a single dose of IV hydralazine and reevaluated. Patient's laboratory studies are remarkable for a lactic acid within normal limits. The remainder of the labs are unremarkable. They're within normal limits. CT imaging was remarkable for a cystlike area within the body of the pancreas as well as possible dilated pancreatic duct. There is diverticulosis without acute diverticulitis. I discussed the findings with the patient. She is having no upper abdominal pain, and all pain was bilateral lower quadrants which is resolved at this time. She has no laboratory studies to suggest acute pancreatic or biliary duct obstruction. I believe it is safer to be discharged home with follow-up. She was in agreement with this plan. Will be given analgesia medications for home. Strict return precautions were discussed. Patient will follow up with her PCP this week. Vital signs are now within normal limits. She is tolerating oral intake. I will provide the patient with a prescription for Bentyl, Zofran ODT. I instructed the patient to follow up with their PCP in the next 1-3 days. I provided contact information for follow up with GI. I explained that the patient should return to the emergency department if they experience any worsening symptoms. Strict return precautions were discussed with the patient. The patient expressed understanding of these instructions. I answered all questions that the patient had. The patient was discharged home in good co ndition with their prescriptions and follow up information. - Lab Data Result diagrams: 03/01/22 08:49 03/01/22 08:49 Lab Results 03/01/22 03/01/22 03/01/22 Range/Units 08:49 08:49 08:49 WBC 6.7 (3.8-10.6) k/uL RBC 4.46 (3.80-5.40) m/uL Hgb 13.7 (11.4-16.0) gm/dL Hct 42.1 (34.0-46.0) % MCV 94.6 (80.0-100.0) fL MCH 30.8 (25.0-35.0) pg MCHC 32.5 (31.0-37.0) g/dL RDW 13.6 (11.5-15.5) % Plt Count 254 (150-450) k/uL MPV 7.5 Neutrophils % 78 % Lymphocytes % 11 % Monocytes % 8 % Eosinophils % 1 % Basophils % 0 % Neutrophils # 5.3 (1.3-7.7) k/uL Lymphocytes # 0.8 L (1.0-4.8) k/uL Monocytes # 0.5 (0-1.0) k/uL Eosinophils # 0.1 (0-0.7) k/uL Basophils # 0.0 (0-0.2) k/uL Sodium 137 (137-145) mmol/L Potassium 3.8 (3.5-5.1) mmol/L Chloride 105 (98-107) mmol/L Carbon Dioxide 25 (22-30) mmol/L Anion Gap 7 mmol/L BUN 12 (7-17) mg/dL Creatinine 0.73 (0.52-1.04) mg/dL Est GFR (CKD-EPI)AfAm >90 (>60 ml/min/1.73 sqM) Est GFR (CKD-EPI)NonAf 83 (>60 ml/min/1.73 sqM) Glucose 90 (74-99) mg/dL Plasma Lactic Acid Aman 1.5 (0.7-2.0) mmol/L Calcium 9.4 (8.4-10.2) mg/dL Total Bilirubin 0.6 (0.2-1.3) mg/dL AST 28 (14-36) U/L ALT 21 (4-34) U/L Alkaline Phosphatase 74 (38-126) U/L Total Protein 6.8 (6.3-8.2) g/dL Albumin 4.3 (3.5-5.0) g/dL Amylase 57 (30-110) U/L Lipase 104 (23-300) U/L Urine Color Urine Appearance (Clear) Urine pH (5.0-8.0) Ur Specific [place] (1.001-1.035) Urine Protein (Negative) Urine Glucose (UA) (Negative) Urine Ketones (Negative) Urine Blood (Negative) Urine Nitrite (Negative) Urine Bilirubin (Negative) Urine Urobilinogen (<2.0) mg/dL Ur Leukocyte Esterase (Negative) Urine RBC (0-5) /hpf Urine WBC (0-5) /hpf Ur Squamous Epith Cells (0-4) /hpf Hyaline Casts (0-2) /lpf Urine Mucus (None) /hpf 03/01/22 Range/Units 08:49 WBC (3.8-10.6) k/uL RBC (3.80-5.40) m/uL Hgb (11.4-16.0) gm/dL Hct (34.0-46.0) % MCV (80.0-100.0) fL MCH (25.0-35.0) pg MCHC (31.0-37.0) g/dL RDW (11.5-15.5) % Plt Count (150-450) k/uL MPV Neutrophils % % Lymphocytes % % Monocytes % % Eosinophils % % Basophils % % Neutrophils # (1.3-7.7) k/uL Lymphocytes # (1.0-4.8) k/uL Monocytes # (0-1.0) k/uL Eosinophils # (0-0.7) k/uL Basophils # (0-0.2) k/uL Sodium (137-145) mmol/L Potassium (3.5-5.1) mmol/L Chloride (98-107) mmol/L Carbon Dioxide (22-30) mmol/L Anion Gap mmol/L BUN (7-17) mg/dL Creatinine (0.52-1.04) mg/dL Est GFR (CKD-EPI)AfAm (>60 ml/min/1.73 sqM) Est GFR (CKD-EPI)NonAf (>60 ml/min/1.73 sqM) Glucose (74-99) mg/dL Plasma Lactic Acid Aman (0.7-2.0) mmol/L Calcium (8.4-10.2) mg/dL Total Bilirubin (0.2-1.3) mg/dL AST (14-36) U/L ALT (4-34) U/L Alkaline Phosphatase (38-126) U/L Total Protein (6.3-8.2) g/dL Albumin (3.5-5.0) g/dL Amylase (30-110) U/L Lipase (23-300) U/L Urine Color Yellow Urine Appearance Clear (Clear) Urine pH 5.5 (5.0-8.0) Ur Specific [place] 1.010 (1.001-1.035) Urine Protein Negative (Negative) Urine Glucose (UA) Negative (Negative) Urine Ketones Negative (Negative) Urine Blood Trace H (Negative) Urine Nitrite Negative (Negative) Urine Bilirubin Negative (Negative) Urine Urobilinogen <2.0 (<2.0) mg/dL Ur Leukocyte Esterase Negative (Negative) Urine RBC 2 (0-5) /hpf Urine WBC 1 (0-5) /hpf Ur Squamous Epith Cells <1 (0-4) /hpf Hyaline Casts 1 (0-2) /lpf Urine Mucus Rare H (None) /hpf Disposition Clinical Impression: Abdominal pain of unknown cause, Pancreatic cyst Disposition: HOME SELF-CARE Condition: Good Instructions (If sedation given, give patient instructions): Abdominal Pain (ED) Additional Instructions: Follow up with PCP this week and Gi for EGD and colonoscopy. If worsening pain or symptoms please return to the Emergency department Prescriptions: Dicyclomine [Bentyl] 20 mg PO QID PRN 7 Days #28 tablet PRN Reason: Pain Ondansetron Odt [Zofran Odt] 4 mg PO Q8HR PRN 3 Days #9 tab PRN Reason: Nausea Is patient prescribed a controlled substance at d/c from ED?: No Referrals: Dmitry Mendoza MD [Primary Care Provider] - 1-2 days Roxie Carty MD [STAFF PHYSICIAN] - 1-2 days Time of Disposition: 10:32
[2022-03-01 09:16] LABS: Basophils % (A) 0 %; Eosinophils # (A) 0.1 k/uL (0-0.7); Eosinophils % (A) 1 %; HCT 42.1 % (34.0-46.0); HGB 13.7 gm/dL (11.4-16.0); Lymphocytes # (A) 0.8 k/uL (1.0-4.8); Lymphocytes % (A) 11 %; MCH 30.8 pg (25.0-35.0); MCHC 32.5 g/dL (31.0-37.0); MCV 94.6 fL (80.0-100.0); Mean Platelet Volume 7.5; Monocytes # (A) 0.5 k/uL (0-1.0); Monocytes % (A) 8 %; Neutrophils # (A) 5.3 k/uL (1.3-7.7); Neutrophils % (A) 78 %; Platelet Count 254 k/uL (150-450); RBC 4.46 m/uL (3.80-5.40); RDW 13.6 % (11.5-15.5); WBC 6.7 k/uL (3.8-10.6)
[2022-03-01 09:34] LABS: Appearance,Urine Clear (Clear); Bilirubin,Urine Negative (Negative); Blood,Urine Trace (Negative); Color,Urine Yellow; Glucose,Urine (UA) Negative (Negative); Hyaline Casts,Urine 1 /lpf (0-2); Ketones,Urine Negative (Negative); Leukocyte Esterase,Urine Negative (Negative); Mucus,Urine Rare /hpf; Nitrite,Urine Negative (Negative); PH, Urine 5.5 (5.0-8.0); Protein,Urine Negative (Negative); RBC,Urine 2 /hpf (0-5); Squamous Epithelial Cell,Urine <1 /hpf (0-4); Urobilinogen,Urine <2.0 mg/dL (<2.0); WBC,Urine 1 /hpf (0-5)
[2022-03-01 09:45] LABS: ALT 21 U/L (4-34); AST 28 U/L (14-36); African American GFR (CKD) >90 (>60 ml/min/1.73 sqM); Albumin 4.3 g/dL (3.5-5.0); Alkaline Phosphatase 74 U/L (38-126); Amylase 57 U/L (30-110); Anion Gap 7 mmol/L; Blood Urea Nitrogen 12 mg/dL (7-17); Calcium 9.4 mg/dL (8.4-10.2); Carbon Dioxide 25 mmol/L (22-30); Chloride 105 mmol/L (98-107); Glucose 90 mg/dL (74-99); Lipase 104 U/L (23-300); Non-African American GFR(CKD) 83 (>60 ml/min/1.73 sqM); Potassium 3.8 mmol/L (3.5-5.1); Sodium 137 mmol/L (137-145); Total Bilirubin 0.6 mg/dL (0.2-1.3); Total Protein 6.8 g/dL (6.3-8.2)
--- NOTE | 2022-03-01 10:21 | CT ---
EXAMINATION TYPE: CT abdomen pelvis w con DATE OF EXAM: 03/01/2022 COMPARISON: 01/21/2018, ultrasound 02/21/2022 INDICATION: Abdominal pain DLP: 419.6 mGycm, Automated exposure control for dose reduction was used. CONTRAST: 100 ml mL of Isovue 300. Study performed without Oral Contrast TECHNIQUE: Axial images were obtained from above the diaphragm to the pubic rami in the axial plane a t 5 mm thick sections. Reconstructed images are reviewed on the computer in the coronal plane. FINDINGS: Limited CT sections are obtained the lung bases. The lung bases are clear. CT ABDOMEN: Liver: Normal Spleen: Normal Pancreas: There is a 0.4 cm hypodensity within the posterior mid body of the pancreas not clearly lynne ntified previous CT but may be present on the ultrasound. Pancreatic duct appears prominent at 0.4 cm at the body of the pancreas. Normal less than 0.2 cm. Consider additional workup with ERCP. Adrenal glands: The adrenal glands are normal. Gallbladder: Normal. Patient's gallstone is not identified. Kidneys: No masses are evident. No hydronephrosis is present. No cysts are present. Delayed images were obtained through the kidneys, which remain unremarkable. Aorta: Vascular calcification is within the aorta. Inferior vena cava: Normal. CT PELVIS: Multiple diverticuli within the sigmoid colon. No inflammatory changes are adjacent to suggest acute diverticulitis. Studies without oral contrast limiting bowel evaluation. No definite free air identif ied. There is some difficulty with small bowel loops near the level of the cecum. Air within this reg ion however appears to be intraluminal Appendix: Normal as visualized. Urinary bladder: Distended. No suspicious abnormality identified. Genitourinary structures: Uterus is in the right superior hemipelvis. Adnexa appear normal Osseous structures: No suspicious lytic or sclerotic lesions. IMPRESSIONS: 1. Dilated pancreatic duct. A cystlike areas within the body of the pancreas. Consider additional wo rkup with ERCP. 2. Diverticulosis without acute diverticulitis. 3. No additional acute abnormality identified, follow-up examinations could be performed as clinicall y indicated.
[2022-03-01 11:31] VITALS: BP 143/68; PULSE 93; TEMP 98.2
== END 2022-03-01 11:43 | disposition home or self-care (01) ==
LOC: EC 08:08
DX: K86.2 Cyst of pancreas (principal); I10 Essential (primary) hypertension; E78.5 Hyperlipidemia, unspecified; Z82.49 Family history of ischemic heart disease and other diseases of the circulatory system
CPT/HCPCS: 99284; 96374; 96375; 96361; 36415; 80053; 82150; 83605; 83690; 85025; 81001; 74177; J2270; J0360; J2405; C9113; Q9967

== ENCOUNTER → 2022-03-30 | Outpatient (CLI) | payer MEDICARE ==
[2022-03-30 18:08] LABS: ALT 23 U/L (8-44); AST 24 U/L (13-35); Albumin 4.4 g/dL (3.8-4.9); Albumin/Globulin Ratio 1.91 (1.60-3.17); Alkaline Phosphatase 89 U/L (41-126); Bilirubin, Conjugated <0.20 mg/dL (0.20-0.40); Globulin 2.3 g/dL (1.6-3.3); Total Protein 6.7 g/dL (6.2-8.2)
== END | disposition home or self-care (01) ==
LOC: LABWHC1 11:01
PROVIDERS: ATTEND Internal Medicine Gastroenterology
DX: R93.2 Abnormal findings on diagnostic imaging of liver and biliary tract (principal)
CPT/HCPCS: 36415; 80076

== ENCOUNTER 2022-04-12 08:39 | Day surgery (SDC) | payer MEDICARE ==
[~2022-04-12 08:39] MED LIST: LACTATED RINGERS 1,000 ML IV SCH; LIDOCAINE 1% (10MG/ML) FOR IV START INTRADERMA PRN
[2022-04-12 09:51] VITALS: TEMP 97.3
[2022-04-12] MEDS ORDERED: PHENYLEPHRINE-0.9% NACL SYG 1,000 MCG/10 ML SYRINGE ONE (10:22)
[2022-04-12] MEDS ORDERED: PROPOFOL 10 MG/ML 20 ML VIAL IV ONE (10:22)
--- NOTE | 2022-04-12 10:39 | P.PCN ---
Date of Procedure: 04/12/22 Procedure(s) Performed: BRIEF HISTORY: Patient is a 71-year-old [place] female scheduled for an elective colonoscopy as a part of evaluation of change in bowel habits and prior history of colon polyps PROCEDURE PERFORMED: Colonoscopy with snare polypectomy. PREOPERATIVE DIAGNOSIS: Change in bowel habits and prior history of colon polyps. IV sedation per Anesthesia. PROCEDURE: After informed consent was obtained, the patient, was brought into the endoscopy unit. IV sedation was administered by Anesthesia under continuous monitoring. Digital rectal examination was normal. Initially the Olympus CF-160 flexible video colonoscope was then inserted in the rectum, gradually advanced into the cecum without any difficulty. Careful examination was performed as the scope was gradually being withdrawn. Ileocecal valve and the appendiceal orifice were visualized and appeared normal. Prep was excellent. Mucosa of the cecum had a 6 minute a flat polyp that was removed by snare polypectomy. Rest of the, ascending colon, transverse colon, appeared normal. The descending colon there was a 4 mm sessile polyp removed by snare polypectomy. Extensive left sided diverticulosis seen. Mucosa of the descending colon, sigmoid colon, and rectum appeared normal. Retroflexion was performed in the rectum and no lesions were seen. The patient tolerated the procedure well. IMPRESSION: 6 mm flat cecal polyp status post polypectomy 4 mm descending colon polyp status post polypectomy Moderate sigmoid diverticulosis RECOMMENDATIONS: Findings of this examination were discussed with the patient as well as his family. She was advised to follow with the biopsy results. If the biopsies adenoma she can have a repeat colonoscopy in 5 years..
[2022-04-12 11:27] VITALS: BP 109/67; PULSE 78; RESP 18
== END 2022-04-12 11:39 ==
LOC: ORWHC2ENDO 08:39
PROVIDERS: ATTEND Internal Medicine Gastroenterology
DX: D12.0 Benign neoplasm of cecum (principal); K57.30 Diverticulosis of large intestine without perforation or abscess without bleeding; I10 Essential (primary) hypertension; E78.5 Hyperlipidemia, unspecified; Z88.6 Allergy status to analgesic agent; Z79.899 Other long term (current) drug therapy; Z79.890 Hormone replacement therapy
CPT/HCPCS: 45385; 88305; J2370; J2704

== ENCOUNTER → 2022-04-13 | Outpatient (CLI) | payer MEDICARE ==
--- NOTE | 2022-04-13 10:42 | MR ---
MR MRCP INDICATION: Patient age:Female; 71 years old; Reason for study: R93.2 ABNORMAL FINDINGS ON DX IMAGING OF LIVER; [facility]. COMPARISON: CT abdomen and pelvis 03/01/2022. TECHNIQUE: Multi planar, T2-weighted imaging with and without fat saturation and chemical shift imag ing was performed of the abdomen. Then, heavily T2 weighted imaging (half-Fourier acquisition single- shot turbo spin-echo) was utilized in order to study the biliary system. Maximum intensity projectio n images were reconstructed from the original data of the biliary tree. No Gadolinium given. FINDINGS: Motion degraded examination. MRCP: The intrahepatic ducts are mildly prominent. The common bile duct at the level of the pancrea tic head measures 6 mm in size. The common hepatic duct measures 5 mm in size. Focal stenosis versus artifact involving the proximal common hepatic duct measuring up to 4 mm (series 902, image 7). The pancreatic duct is normal in caliber. Pancreatic divisum identified. There is a 5 mm T2 hyperintense cystic lesion with connection with the main pancreatic duct in the midportion of the pancreatic body (series 1001, image 5). No mural nodularity identified. No filling defects demonstrated within the gallbladder to suggest gallstones. No wall thickening or s urrounding edema. Gallbladder adenomyomatosis identified. Abdomen: The liver, spleen, adrenal glands, kidneys, and pancreas have a normal noncontrast appearanc e. IMPRESSION: 1. Mid pancreatic body 5 mm cystic lesion favored to represent a sidebranch IPMN. No worrisome featur es or high risk stigmata. 2. Focal stenosis versus artifact involving the proximal common hepatic duct measuring 4 mm. Consider further evaluation with ERCP or follow-up MRCP. 3. Pancreatic divisum. 4. Gallbladder adenomyomatosis.
== END | disposition home or self-care (01) ==
LOC: RADMRIMAIN 07:53
PROVIDERS: ATTEND Internal Medicine Gastroenterology
DX: R93.2 Abnormal findings on diagnostic imaging of liver and biliary tract (principal)
CPT/HCPCS: 74181

== ENCOUNTER → 2022-08-29 | Outpatient (CLI) | payer MEDICARE ==
--- NOTE | 2022-08-30 15:10 | US ---
EXAMINATION TYPE: US arterial LE multi level DATE OF EXAM: 08/29/2022 12:14 PM CLINICAL HISTORY: M79.604 PAIN IN RIGHT LEG, M79.605 PAIN IN L LEG. History of: Smoker: Previous Hypertension: Yes Diabetic: No Hyperlipidemia: Yes TIA/CVA: Yes Previous Vascular Surgery: Yes CAD: Yes [place]: Yes Vascular Ulcers: No Claudication: No Gangrene: No Doppler Waveforms: Right: Biphasic Left: Biphasic Pulse Volume Recording: Pressure Gradients: Right Brachial Pressure: Left Brachial Pressure: Ankle-Brachial Indices: Right: 1.03 Left: 1.07 Toe Brachial Indices: Right: 0.57 Left: 0.88 IMPRESSION: Slightly diminished right sided TBI value consistent with at least mild peripheral arter ial disease in the right foot. Further workup and follow-up advised.
== END | disposition home or self-care (01) ==
LOC: RADUSWWP 12:05
PROVIDERS: ATTEND Family Medicine
DX: I10 Essential (primary) hypertension (principal); E78.5 Hyperlipidemia, unspecified; I25.10 Atherosclerotic heart disease of native coronary artery without angina pectoris; Z87.891 Personal history of nicotine dependence; Z86.73 Personal history of transient ischemic attack (TIA), and cerebral infarction without residual deficits
CPT/HCPCS: 93923

== ENCOUNTER → 2022-10-11 | Outpatient (CLI) | payer MEDICARE ==
--- NOTE | 2022-10-11 13:16 | MR ---
EXAMINATION TYPE: MR abdomen wo/w con DATE OF EXAM: 10/11/2022 8:48 AM INDICATION: Patient age:Female; 72 years old; Reason for study: R93.2 ABNORMAL FINDINGS ON DX IMAGING OF LIVER. Abnormal CT abdomen/pelvis COMPARISON: MRCP 04/13/2022. TECHNIQUE: Multiplanar multi-sequence imaging was performed without contrast. Post contrast imaging was performed. Post IV contrast subtraction images were also submitted for review. IV Contrast: 4.5 cc Gadavist FINDINGS: LOWER CHEST: No gross irregularity. ABDOMEN Liver: Mild signal dropout on in phase imaging. No suspicious masses. No abnormal postcontrast enhanc ement Gallbladder and Bile ducts: The intrahepatic ducts are mildly prominent. The common bile duct at the level of the pancreatic head measures 6 mm in size. The common hepatic duct measures 5 mm in size. Focal stenosis involving the proximal common hepatic duct measuring up to 4 mm with post stenotic dil ation up to 8 mm. No abnormal postcontrast enhancement. Gallbladder adenomyomatosis identified. Pancreas: The pancreatic duct is normal in caliber. Pancreatic divisum identified. There is a 5 mm T2 hyperintense cystic lesion with connection with the main pancreatic duct in the midportion of the pa ncreatic body series 401 image 9. No mural nodularity identified. Spleen: Unremarkable. Adrenal glands: Unremarkable. Kidneys: Unremarkable. Stomach and Bowel: Scattered colonic diverticula present. No evidence of bowel obstruction. Peritoneum: No evidence of pneumoperitoneum or free fluid. Vasculature: Unremarkable. No aortic aneurysm. Musculoskeletal: The osseous structures appear intact. Lymph Nodes: No gross evidence for lymphadenopathy. Abdominal wall: Unremarkable. IMPRESSION: Motion limited exam again. 1. No suspicious masses. 2. Stable mid pancreatic body 5 mm cystic lesion favored to represent a sidebranch IPMN. No worrisom e features or high risk stigmata. 3. Focal narrowing of the common hepatic duct remains present without definitive postcontrast enhanc ement to suggest mass. 4. Pancreatic divisum. 5. Gallbladder adenomyomatosis.
== END | disposition home or self-care (01) ==
LOC: RADMRIMAIN 07:34
PROVIDERS: ATTEND Internal Medicine Gastroenterology
DX: K86.89 Other specified diseases of pancreas (principal); K76.89 Other specified diseases of liver; Q45.3 Other congenital malformations of pancreas and pancreatic duct; K82.8 Other specified diseases of gallbladder
CPT/HCPCS: 74183; A9585

== ENCOUNTER → 2023-05-23 | Outpatient (CLI) | payer MEDICARE ==
--- NOTE | 2023-05-24 10:06 | MM ---
Reason for Exam: Screening (asymptomatic). Last mammogram was performed 3 year(s) and 4 month(s) ago. Patient History: Menarche at age 12. First Full-Term at age 35. Late child-bearing (after 30). Postmenopausal. Risk Values: Tequila 5 year model risk: 2.4%. NCI Lifetime model risk: 5.9%. Prior Study Comparison: 10/19/2017 Bilateral Screening Mammogram, [facility]. 10/21/2018 Bilateral Screening Mammogram, [facility]. 12/30/2019 Bilateral Screening Mammogram, [facility]. Tissue Density: The breast tissue is heterogeneously dense. This may lower the sensitivity of mammography. Findings: Analyzed By CAD. There is no suspicious group of microcalcifications or new suspicious mass in either breast. Overall Assessment: Negative, BI-RAD 1 Management: Screening Mammogram of both breasts in 1 year. A clinical breast exam by your physician is recommended on an annual basis and results should be correlated with mammographic findings. Note on Tequila scores and lifetime risk: 1. A Tequila score greater than 3% is considered moderate risk. If this is the case, consider specialist referral to assess eligibility for a risk reducing agent. If overall lifetime risk for the development of breast cancer is 20% or higher, the patient may qualify for future screening with alternating mammogram and breast MRI. Electronically signed and approved by: Henrique Lomax D.O.
== END | disposition home or self-care (01) ==
LOC: RADMAMWWP 14:09
PROVIDERS: ATTEND Family Medicine
DX: Z12.31 Encounter for screening mammogram for malignant neoplasm of breast (principal); Z78.0 Asymptomatic menopausal state
CPT/HCPCS: 77063; 77067

== ENCOUNTER → 2024-01-11 | Outpatient (CLI) | payer MEDICARE ==
[2024-01-11 14:23] VITALS: BP 143/75; PULSE 90; RESP 15; TEMP 97.5
[2024-01-11] MEDS: DENOSUMAB 60 MG/ML 1 ML SYRINGE SQ NR (14:23)
== END ==
LOC: PROCWHC3 14:13
PROVIDERS: ATTEND Nurse Practitioner Family
DX: M81.0 Age-related osteoporosis without current pathological fracture (principal)
CPT/HCPCS: 96372; J0897

== ENCOUNTER → 2024-05-16 | Outpatient (CLI) | payer MEDICARE ==
[2024-05-16 15:30] LABS: Basophils # (A) 0.03 X 10*3/uL (0.00-0.10); Basophils % (A) 0.5 %; Eosinophils # (A) 0.11 X 10*3/uL (0.04-0.35); Eosinophils % (A) 1.7 %; HGB 14.1 g/dL (12.0-15.0); Lymphocytes # (A) 1.75 X 10*3/uL (0.90-5.00); Lymphocytes % (A) 26.4 %; MCH 30.5 pg (27.0-32.0); MCHC 32.8 g/dL (32.0-37.0); MCV 93.1 FL (80.0-97.0); Mean Platelet Volume 9.8 FL (9.5-12.2); Monocytes % (A) 13.6 %; NRBC Per 100 WBC 0 X 10*3/uL (0.00-0.01); Neutrophils # (A) 3.81 X 10*3/uL (1.80-7.70); Neutrophils % (A) 57.5 %; Platelet Count 308 X 10*3/uL (140-440); RBC 4.62 X 10*6/uL (4.10-5.20); RDW 13.3 % (11.5-14.5); WBC 6.62 X 10*3/uL (4.50-10.00)
[2024-05-16 15:50] LABS: ALT 21 U/L (8-44); AST 23 U/L (13-35); Albumin 4.7 g/dL (3.8-4.9); Albumin/Globulin Ratio 1.96 Ratio (1.60-3.17); Alkaline Phosphatase 56 U/L (41-126); Amylase 59 U/L (23-121); BUN/Creat Ratio 21.71 Ratio (12.00-20.00); Blood Urea Nitrogen 15.2 mg/dL (9.0-27.0); Calcium 9.2 mg/dL (8.7-10.3); Carbon Dioxide 26.2 mmol/L (21.6-31.8); Chloride 101 mmol/L (96-109); Globulin 2.4 g/dL (1.6-3.3); Glucose 106 mg/dL (70-110); Lipase 42 U/L (14-63); Potassium 4.4 mmol/L (3.5-5.5); Sodium 138 mmol/L (135-145); Total Bilirubin 0.4 mg/dL (0.3-1.2); Total Protein 7.1 g/dL (6.2-8.2)
[2024-05-16 21:33] LABS: Carcinoembryonic Antigen 7.1 ng/mL (0.0-4.9)
[2024-05-18 21:54] LABS: Cancer Antigen 19-9 16.8 U/mL (0.0-34.9)
== END | disposition home or self-care (01) ==
LOC: LABWHC1 11:04
PROVIDERS: ATTEND Internal Medicine Gastroenterology
DX: K86.9 Disease of pancreas, unspecified (principal)
CPT/HCPCS: 36415; 80053; 82150; 82378; 83690; 85025; 86301

== ENCOUNTER → 2024-05-28 | Outpatient (CLI) | payer MEDICARE ==
--- NOTE | 2024-05-29 14:20 | MM ---
Reason for Exam: Screening (asymptomatic). Last screening mammogram was performed 12 month(s) ago. Patient History: Menarche at age 12. First Full-Term at age 35. Late child-bearing (after 30). Postmenopausal. Risk Values: Tequila 5 year model risk: 2.4%. NCI Lifetime model risk: 5.6%. Prior Study Comparison: 10/21/2018 Bilateral Screening Mammogram, [facility]. 12/30/2019 Bilateral Screening Mammogram, [facility]. 05/23/2023 Bilateral MG 3D screening mammo w/cad, [facility]. Tissue Density: The breasts are heterogeneously dense, which may obscure small masses. Findings: Analyzed By CAD. Unchanged areas of asymmetric density on the left. There is no suspicious group of microcalcifications or new suspicious mass in either breast. Overall Assessment: Benign, BI-RAD 2 Management: Screening Mammogram of both breasts in 1 year. . Patient should continue monthly self-breast exams. A clinical breast exam by your physician is recommended on an annual basis. This exam should not preclude additional follow-up of suspicious palpable abnormalities. Note on Tequila scores and lifetime risk: 1. A Tequila score greater than 3% is considered moderate risk. If this is the case, consider specialist referral to assess eligibility for a risk reducing agent. 2. If overall lifetime risk for the development of breast cancer is 20% or higher, the patient may qualify for future screening with alternating mammogram and breast MRI. [facility], , 05/29/2024 2:17 PM. Electronically signed and approved by: Rula Delong M.D. Radiologist
== END | disposition home or self-care (01) ==
LOC: RADMAMWWP 13:54
PROVIDERS: ATTEND Family Medicine
CPT/HCPCS: 77063; 77067

== ENCOUNTER → 2024-07-15 | Outpatient (CLI) | payer MEDICARE ==
[2024-07-15] MEDS: DENOSUMAB 60 MG/ML 1 ML SYRINGE SQ NR (14:00)
[2024-07-15 14:05] VITALS: BP 137/70; PULSE 55; RESP 16; TEMP 98.1
== END ==
LOC: PROCWHC3 13:53
PROVIDERS: ATTEND Family Medicine
DX: M81.0 Age-related osteoporosis without current pathological fracture (principal)
CPT/HCPCS: 96372; J0897

== ENCOUNTER 2024-08-11 15:47 | Emergency (ER) | payer MEDICARE ==
[2024-08-11 16:16] VITALS: BP 120/69; PULSE 88; RESP 18; TEMP 97.7
--- NOTE | 2024-08-11 16:29 | ED ---
General Adult HPI - General Chief complaint: Back Pain/Injury Stated complaint: Fall-Back pain Source: patient, RN notes reviewed, old records reviewed Mode of arrival: wheelchair Limitations: no limitations - History of Present Illness Initial comments: 74-year-old female presenting with right lateral rib pain after a fall which occurred 2 days ago. Patient slipped on the ice. She had a minor injury to the right elbow but states there is no persistent pain. She denies head or neck trauma. No loss consciousness. Pain is isolated to the right lateral ribs. Pain is worse with deep inspiration. Patient concerned about rib fracture. - Related Data Home Medications Medication Instructions Recorded Confirmed Aspirin EC [Ecotrin] 81 mg PO HS 11/02/15 07/15/24 Atorvastatin [Lipitor] 80 mg PO HS 11/02/15 07/15/24 lisinopriL [Zestril] 10 mg PO HS 11/02/15 07/15/24 Fish Oil/Dha/Epa [Fish Oil 1,200 1 cap PO HS 01/21/18 07/15/24 mg Fish Oil] Calcium Carbonate [Calcium] 1,200 mg PO HS 09/11/21 07/15/24 Cholecalciferol [Vitamin D3 (25 50 mcg PO DAILY 09/11/21 07/15/24 Mcg = 1000 Iu)] Risedronate Sodium [Actonel] 5 mg PO HS 09/11/21 07/15/24 Allergies Allergy/AdvReac Type Severity Reaction Status Date / Time morphine AdvReac Itching Verified 08/11/24 16:12 Review of Systems ROS Statement: Those systems with pertinent positive or pertinent negative responses have been documented in the HPI. ROS Other: All systems not noted in ROS Statement are negative. Past Medical History Past Medical History: Hyperlipidemia, Hypertension, Myocardial Infarction (MT), Musculoskeletal Disorder, Osteoarthritis (OA) Additional Past Medical History / Comment(s): OSTEOPOROSIS. Small Gallstone. "Saw something on CT of pancreas." Last Myocardial Infarction Date:: 2004 History of Any Multi-Drug Resistant Organisms: None Reported Past Surgical History: Heart Catheterization With Stent Additional Past Surgical History / Comment(s): RIGHT CATARACT, COLONOSCOPY, HEART CATH WITH 3 STENTS (2004). Past Anesthesia/Blood Transfusion Reactions: No Reported Reaction Date of Last Stent Placement:: 2004 Past Psychological History: No Psychological Hx Reported Smoking Status: Former smoker Past Alcohol Use History: None Reported Past Drug Use History: None Reported - Past Family History Mother Family Medical History: No Reported History General Exam Limitations: no limitations General appearance: alert, in no apparent distress Head exam: Present: atraumatic, normocephalic Eye exam: Present: normal appearance, PERRL ENT exam: Present: normal exam Neck exam: Present: normal inspection. Absent: tenderness, meningismus Respiratory exam: Present: normal lung sounds bilaterally, chest wall tenderness. Absent: respiratory distress, wheezes Cardiovascular Exam: Present: regular rate, normal rhythm GI/Abdominal exam: Present: soft, distended Extremities exam: Present: normal inspection, normal capillary refill Neurological exam: Present: alert, oriented X3 Psychiatric exam: Present: normal affect, normal mood Skin exam: Present: warm, dry, intact, normal color. Absent: cyanosis, diaphoretic Course Vital Signs 08/11/24 16:12 Temperature 97.7 F Pulse Rate 88 Respiratory 18 Rate Blood Pressure 120/69 O2 Sat by Pulse 94 L Oximetry Medical Decision Making - Medical Decision Making Was pt. sent in by a medical professional or institution (Dr. PA, FIRE PREVENTION RESEARCH ENGINEER, urgent care, hospital, or shelter...) When possible be specific @ -No Did you speak to anyone other than the patient for history (EMS, parent, family, police, friend...)? What history was obtained from this source @ -No Did you review nursing and triage notes (agree or disagree)? Why? @ -I reviewed and agree with nursing and triage notes Were old charts reviewed (outside hosp., previous admission, EMS record, old EKG, old radiological studies, urgent care reports/EKG's, shelter records)? Report findings @ -No old charts were reviewed Differential Diagnosis:, Rib fracture, rib contusion, pneumothorax @ -Not applicable EKG interpreted by me (3pts min.). @ -As above X-rays interpreted by me (1pt min.). @Chest x-ray with rib films on the right negative for displaced fracture, no acute findings. CT interpreted by me (1pt min.). @ -None done U/S interpreted by me (1pt. min.). @ -None done What testing was considered but not performed or refused? (CT, X-rays, U/S, labs)? Why? @ -None What meds were considered but not given or refused? Why? @ -None Did you discuss the management of the patient with other professionals (professionals i.e. , PA, FIRE PREVENTION RESEARCH ENGINEER, lab, RT, psych nurse, criminal justice social worker, clinic office manager, teacher, dispatch officer, pillowcase sewer)? Give summary @ -No Was smoking cessation discussed for >3mins.? @ -No Was critical care preformed (if so, how long)? @ -No Were there social determinants of health that impacted care today? How? (Homelessness, low income, unemployed, alcoholism, drug addiction, transportation, low edu. Level, literacy, decrease access to med. care, [facility], rehab)? @ -No Was there de-escalation of care discussed even if they declined (Discuss DNR or withdrawal of care, Hospice)? DNR status @ -No What co-morbidities impacted this encounter? (DM, HTN, Smoking, COPD, CAD, Can cer, CVA, ARF, Chemo, Hep., AIDS, mental health diagnosis, sleep apnea, morbid obesity)? @ -None Was patient admitted / discharged? Hospital course, mention meds given and route, prescriptions, significant lab abnormalities, going to OR and other pertinent info. @ -74-year-old female with slip and fall, right lateral chest wall pain. No displaced fracture or pneumothorax on x-ray. Patient will continue oral pain medications at home. Return parameters discussed. She will follow-up with her primary care provider. Undiagnosed new problem with uncertain prognosis? @ -No Drug Therapy requiring intensive monitoring for toxicity (Heparin, Nitro, Insulin, Cardizem)? @ -No Were any procedures done? @ -No Diagnosis/symptom? @ -[Chest wall contusion Acute, or Chronic, or Acute on Chronic? @Acute Uncomplicated (without systemic symptoms) or Complicated (systemic symptoms)? @ -Default Side effects of treatment? @ -No Exacerbation, Progression, or Severe Exacerbation? @ -No Poses a threat to life or bodily function? How? (Chest pain, USA, MT, pneumonia, PE, COPD, DKA, ARF, appy, cholecystitis, CVA, Diverticulitis, Homicidal, Suicidal, threat to staff... and all critical care pts) @ -No Disposition Clinical Impression: Contusion of rib on right side Disposition: HOME SELF-CARE Condition: Fair Instructions (If sedation given, give patient instructions): Rib Contusion (ED) Is patient prescribed a controlled substance at d/c from ED?: No Referrals: Wolfgang Stoddard DO [Primary Care Provider] - 1-2 days Time of Disposition: 16:49
--- NOTE | 2024-08-11 16:41 | XR ---
EXAMINATION TYPE: XR ribs RT w pa chest xray DATE OF EXAM: 08/11/2024 4:32 PM COMPARISON: 09/11/2021 CLINICAL INDICATION: Female, 74 years old with history of fall; PHH, pain TECHNIQUE: XR ribs RT w pa chest xray; Frontal and oblique views of the ribs with frontal chest radio graph. FINDINGS: The ribs have a normal appearance. No evidence of fracture. Overall, the lungs are clear. The cardiac silhouette is normal in size. The remaining osseous structures are intact. Increased ruby cency along apices with flattening of the diaphragm. No displaced fracture definitely visualized at t his course of the arterial vasculature. Mild degeneration changes of the spine. IMPRESSION: 1. No displaced fracture definitely visualized, acute osseous pathology. 2. COPD changes. [facility], , 08/11/2024 4:39 PM
== END 2024-08-11 17:18 | disposition home or self-care (01) ==
LOC: EC 15:47
DX: S20.211A Contusion of right front wall of thorax, initial encounter (principal); Z88.5 Allergy status to narcotic agent; Z87.891 Personal history of nicotine dependence; W00.0XXA Fall on same level due to ice and snow, initial encounter
CPT/HCPCS: 99283